=== PATIENT | female | born 1990 | race Caucasian/White ===

== ENCOUNTER 2017-06-21 08:56 | Emergency (ER) | payer MEDICAID ==
[2017-06-21 08:57] VITALS: BMI 23.6
[2017-06-21 09:08] VITALS: RESP 18; O2SAT 99
--- NOTE | 2017-06-21 09:22 | C.PDOC ---
History Of Present Illness Pt is a 27 year old fever who is c/o of developing a gradual onset headache that started on evening. The headache has been constant. She states the MOSER is a 10 (on 1-10 scale). The headache is located in the frontal area of the head (pointing along left and right eyebrows and in center). Pt states that a fever started on Friday. Tmax was 100.8F. Tyelnol helps symptoms a little. Pt also took flu medicine yesterday--which helped a little. No cough, no stuffy nose, no runny nose, no sore throat. Pt also c/o pain in both of her ears--pressure type of pain. LMP was Friday. Pt states she doesn't think that she is . Pt has had headaches before. Pt cannot recall if she had a flu shot this year. PMD: Dr. Iggy Rhodes . Time Seen by Provider: 06/21/17 09:07 Chief Complaint (Nursing): Fever History Per: Patient History/Exam Limitations: no limitations Past Medical History Reviewed: Historical Data, Nursing Documentation, Vital Signs Vital Signs: Last Vital Signs Temp 98.5 F 06/21/17 11:10 Pulse 75 06/21/17 11:10 Resp 18 06/21/17 11:10 BP 102/67 06/21/17 11:10 Pulse Ox 99 06/21/17 11:21 - Medical History PMH: No Chronic Diseases Surgical History: Family History: States: Other Other Family History: thyroid cancer - Social History Hx Tobacco Use: No Hx Alcohol Use: No Hx Substance Use: No - Immunization History Hx Tetanus Toxoid Vaccination: Yes Hx Influenza Vaccination: No Hx Pneumococcal Vaccination: Yes Review Of Systems Except As Marked, All Systems Reviewed And Found Negative. Constitutional: Positive for: Fever ENT: Positive for: Ear Pain Cardiovascular: Negative for: Chest Pain Respiratory: Negative for: Shortness of Breath Gastrointestinal: Negative for: Nausea, Vomiting, Abdominal Pain Neurological: Positive for: Headache Physical Exam - Physical Exam Appears: Well, Non-toxic, No Acute Distress Skin: Normal Color, Warm, Dry Head: Atraumatic Eye(s): bilateral: Normal Inspection Ear(s): Bilateral: TM Dull Nose: Normal, Other ((+) frontal sinus tenderness) Oral Mucosa: Moist Tongue: Normal Appearing Lips: Normal Appearing Teeth: Normal Dentition Throat: Normal Neck: Normal Lymphatic: Deferred Chest: Symmetrical Cardiovascular: Rhythm Regular Respiratory: Normal Breath Sounds Gastrointestinal/Abdominal: Normal Exam, Soft, No Tenderness Rectal: Deferred Back: Normal Inspection Extremity: Bilateral: Atraumatic Neurological/Psych: Oriented x3 ED Course And Treatment O2 Sat by Pulse Oximetry: 99 Medical Decision Making Medical Decision Making: Initial Impression: Sinusitis Initial Plan: Will give pain medication and Sudafed and reassess Progress Note(s): Patient states she feels much better. MOSER is now a "6". Pt states that she now has also started coughing and is also requesting some cough medicine. Pt looks well. Will d/c home. . Disposition Counseled Patient/Family Regarding: Studies Performed, Diagnosis, Need For Followup - Disposition Disposition: HOME/ ROUTINE Disposition Time: 11:09 Condition: IMPROVED Additional Instructions: Erin, thank you for letting us take care of you today. Return to the ER if your symptoms worsen, or if any problems. Take the medication listed below as prescribed. Follow up with your doctor in 2-3 days for a re-evaluation. Prescriptions: Amoxicillin/Clavulanate [Augmentin 875 MG-125 MG] 1 tab PO BID #14 tab guaiFENesin [Robitussin] 1 tbs PO Q4 PRN #4 oz PRN Reason: Cough Ibuprofen [Motrin] 1 tab PO TID PRN #30 tab PRN Reason: Headache Pseudoephedrine HCl [Sudafed] 1 tab PO Q6 PRN #28 tablet PRN Reason: Cough And Congestion Instructions: Sinusitis (ED) Forms: [employer] (Arabic), General Discharge Instructions Print Language: CZECH - POA Present On Arrival: None - Clinical Impression Clinical Impression: Sinusitis
[2017-06-21] MEDS ORDERED: Amoxicillin-Clav 875-125 mg Tab PO STA (11:09)
[2017-06-21 11:11] VITALS: BP 102/67; PULSE 75; TEMP 98.5
[2017-06-21] MEDS ORDERED: Amoxicillin-Clav 875-125 mg Tab PO ONE (11:15)
== END 2017-06-21 11:25 | disposition home or self-care (01) ==
LOC: C.ER 08:56
DX: J32.9 Chronic sinusitis, unspecified (principal)

== ENCOUNTER 2018-04-14 09:11 | Emergency (ER) | payer MEDICAID ==
[2018-04-14 09:11] VITALS: BMI 23.6
[2018-04-14] MEDS ORDERED: Sodium Chloride 0.9% 500 ML IV ONE (09:36)
--- NOTE | 2018-04-14 09:36 | C.PDOC ---
History Of Present Illness 28 y/o female with surgical history of presents to ED with c/o lower abdominal pain since yesterday. Patient states pain developed gradually and was first on mid abdomen, now located on RLQ. Patient admits to nausea and denies vomiting, vaginal bleeding, dysuria, vaginal discharge, diarrhea or any other complaints at this time. LMP 03/19/18 <YunierClover - Last Filed: 04/14/18 12:51> History Per: Patient History/Exam Limitations: no limitations Onset/Duration Of Symptoms: Days, Gradual Current Symptoms Are (Timing): Still Present Location Of Pain/Discomfort: RLQ <Clover Faye - Last Filed: 04/14/18 12:51> <Lillian Liang - Last Filed: 04/14/18 14:07> Time Seen by Provider: 04/14/18 09:20 Chief Complaint (Nursing): Abdominal Pain Past Medical History Reviewed: Historical Data, Nursing Documentation, Vital Signs Vital Signs: Last Vital Signs Temp 98.9 F 04/14/18 09:21 Pulse 79 04/14/18 09:21 Resp 20 04/14/18 09:21 BP 130/76 04/14/18 09:21 Pulse Ox 100 04/14/18 09:21 - Medical History PMH: No Chronic Diseases Surgical History: Family History: States: No Known Family Hx - Social History Hx Tobacco Use: No Hx Alcohol Use: No Hx Substance Use: No - Immunization History Hx Tetanus Toxoid Vaccination: Yes Hx Influenza Vaccination: No Hx Pneumococcal Vaccination: Yes <YunierClover - Last Filed: 04/14/18 12:51> Vital Signs: Last Vital Signs Temp 98.9 F 04/14/18 12:31 Pulse 68 04/14/18 12:31 Resp 16 04/14/18 12:31 BP 103/67 04/14/18 12:31 Pulse Ox 100 04/14/18 12:51 <Lillian Liang - Last Filed: 04/14/18 14:07> Review Of Systems Constitutional: Negative for: Fever, Chills Gastrointestinal: Positive for: Nausea, Abdominal Pain. Negative for: Vomiting, Diarrhea Genitourinary: Positive for: Pelvic Pain. Negative for: Dysuria, Vaginal Discharge, Vaginal Bleeding Musculoskeletal: Negative for: Back Pain Skin: Negative for: Rash <Ho,Clover - Last Filed: 04/14/18 12:51> Physical Exam - Physical Exam Appears: Non-toxic, Other (In moderate distress) Skin: Warm, Dry, No Rash Head: Atraumatic, Normacephalic Eye(s): bilateral: Normal Inspection Oral Mucosa: Moist Neck: Supple Cardiovascular: Rhythm Regular Respiratory: Normal Breath Sounds, No Rales, No Rhonchi, No Wheezing Gastrointestinal/Abdominal: Soft, Tenderness (bilateral lower quadrants and pelvic area), No Guarding, No Rebound Back: No CVA Tenderness Neurological/Psych: Oriented x3, Normal Speech, Normal Motor, Normal Sensation <Clover Faye - Last Filed: 04/14/18 12:51> ED Course And Treatment - Laboratory Results Result Diagrams: 04/14/18 09:55 04/14/18 09:55 O2 Sat by Pulse Oximetry: 100 (RA) Pulse Ox Interpretation: Normal <Clover Faye - Last Filed: 04/14/18 12:51> - Laboratory Results Result Diagrams: 04/14/18 09:55 04/14/18 09:55 <Lillian Liang - Last Filed: 04/14/18 14:07> Progress - Re-Evaluation Re-evaluation Note: 04/14/18 12:34 RECUR PAIN. VSS. US NEG. PENDING CT - Data Reviewed Data Reviewed: Lab, Diagnostic imaging, Old records <Clover Faye - Last Filed: 04/14/18 12:51> Disposition - Disposition Disposition Time: 13:00 <Clover Faye - Last Filed: 04/14/18 12:51> <Lillian Liang - Last Filed: 04/14/18 14:07> - Disposition Condition: STABLE Forms: [employer] (Tanzanian) - Clinical Impression Clinical Impression: Abdominal pain - Scribe Statement The provider has reviewed the documentation as recorded by the Norisibanabella Jacques All medical record entries made by the Norisibe were at my direction and personally dictated by me. I have reviewed the chart and agree that the record accurately reflects my personal performance of the history, physical exam, medical decision making, and the department course for this patient. I have also personally directed, reviewed, and agree with the discharge instructions and disposition. <Clover Faye - Last Filed: 04/14/18 12:51> Physician Patient Turnover Patient Signed Over To: Lillian Liang Handoff Comments: fu ct, dispo <Clover Faye - Last Filed: 04/14/18 12:51> Addendum Addendum: 04/14/18 13:56 Accession No. : [id number] Patient Name / ID : PARESH FLORES B / [id number] Exam Date : 04/14/2018 12:56:27 ( Approved ) Study Comment : Sex / Age : F / 28Y Creator : Sarah Manriquez Dictator : Brianna Inman MD Section Forest Fire Warden : Telemetry Technician : Brianna Inman MD Approver2 : Report Date : 04/14/2018 13:13:11 My Comment : PROCEDURE: CT Abdomen and Pelvis with oral and IV contrast. HISTORY: RLQ PAIN RO APPY COMPARISON: None available. TECHNIQUE: Contiguous axial images of the abdomen and pelvis. Oral and IV contrast was administered. Coronal and Sagittal reformats generated and reviewed. Contrast dose: 100 cc Visipaque 320 Radiation dose: Total exam DLP = 258.35 mGy-cm. This CT exam was performed using one or more of the following dose reduction te chniques: Automated exposure control, adjustment of the mA and/or kV according to patient size, and/or use of iterative reconstruction technique. FINDINGS: LOWER THORAX: No visible consolidation, pleural effusion, or pneumothorax. LIVER: Unremarkable. GALLBLADDER AND BILE DUCTS: Unremarkable. PANCREAS: Unremarkable. SPLEEN: Unremarkable. ADRENALS: Unremarkable. KIDNEYS AND URETERS: The kidneys enhance symmetrically. No hydronephrosis or obstructing renal calculus. BLADDER: The urinary bladder appears unremarkable. REPRODUCTIVE: Uterus is present. Heterogeneous appearance of the uterus with suspected fibroid. Apparent fluid within the endometrium. APPENDIX: The appendix appears within normal limits of caliber. No secondary signs of acute appendicitis. BOWEL: The stomach is nondistended. The bowel loops appear within normal limits of caliber without evidence of intestinal obstruction. Moderate constipation. PERITONEUM: No significant free fluid. No definite free air. LYMPH NODES: No bulky lymphadenopathy identified. VASCULATURE: No aortic aneurysm. BONES: No acute osseous abnormality is detected. OTHER FINDINGS: None. IMPRESSION: Uterus is present. Heterogeneous appearance of the uterus with suspected fibroid. Apparent fluid within the endometrium. Suggest pelvic ultrasound for further evaluation. The appendix appears within normal limits of caliber. No secondary signs of acute appendicitis. 04/14/18 13:57 Accession No. : [id number] Patient Name / ID : PARESH FLORES B / [id number] Exam Date : 04/14/2018 11:25:55 ( Approved ) Study Comment : Sex / Age : F / 28Y Creator : Brianna Inman MD Dictator : Brianna Inman MD Section Forest Fire Warden : Telemetry Technician : Brianna Inman MD Approver2 : Report Date : 04/14/2018 12:17:29 My Comment : Date of service: 04/14/2018 HISTORY: pelvic pain COMPARISON: Pelvic/transvaginal ultrasound performed 04/27/15 TECHNIQUE: Real-time transabdominal pelvic ultrasound was performed. In addition a transvaginal pelvic ultrasound was necessary to better depict pelvic anatomy. FINDINGS: UTERUS: Measures 9.5 x 4.7 x 6.4 cm. Anteverted. ENDOMETRIUM: Measures 1.5 cm in diameter. CERVIX: No cervical abnormality identified. RIGHT OVARY: Measures 2.7 x 2.1 x 2.4 cm. Blood flow is demonstrated. LEFT OVARY: Measures 2.7 x 1.8 x 2.7 cm. Blood flow is demonstrated. 1.4 cm follicle. FREE FLUID: Small pelvic free fluid. OTHER FINDINGS: None. IMPRESSION: No acute findings identified. See above. 04/14/18 14:02 Patient currently resting comfortably, states her pain has improved and she feels better. She reports a history of endometriosis, states the last time she had this type of pain her aluminum can collector told her it was due to endometriosis. On exam, abdomen is currently soft and nontender. CT scan shows uterine fibroid and some free fluid in pelvis (? endometrial fluid), without evidence of acute intrababdominal findings. UA +leuk and rare bacteria. Will give Rxs for pain medication and antibioitics. Patient instructed to follow up with boat finisher within 1 week, and understands she should return to ED if symptoms worsen. <Lillian Liang - Last Filed: 04/14/18 14:07>
[2018-04-14 09:59] LABS: BASO % 0.6 % (0.0-2.0); EOS # 0.1 K/uL (0.0-0.7); EOS % 1.5 % (0.0-4.0); LYMPH # 1.3 K/uL (1.0-4.3); LYMPH % 27.7 % (20.0-40.0); MEAN CELL VOLUME 89.4 fL (81.0-99.0); MEAN CORPUSCULAR HEMOGLOBIN 30.2 pg (27.0-31.0); MEAN CORPUSCULAR HGB CONC 33.8 g/dL (33.0-37.0); MEAN PLATELET VOLUME 8.5 fL (7.2-11.7); MONO # 0.4 K/uL (0.0-0.8); MONO % 7.5 % (0.0-10.0); NEUT % 62.7 % (50.0-75.0); NRBC % 0.1 % (0.0-2.0); RBC 3.97 Mil/uL (3.80-5.20); RED CELL DISTRIBUTION WIDTH 13.1 % (11.5-14.5)
[2018-04-14] MEDS ORDERED: Sodium Chloride 0.9% 1,000 ML ONE (09:59)
[2018-04-14 10:02] LABS: WHITE BLOOD COUNT 4.8 K/uL (4.8-10.8)
[2018-04-14] MEDS ORDERED: Iohexol 240 (50 ml) PO ONE (10:07)
[2018-04-14 10:11] LABS: ALB/GLOB RATIO 1.3 (1.0-2.1); ALBUMIN 4.3 g/dL (3.5-5.0); ALT/SGPT 22 U/L (9-52); AST/SGOT 13 U/L (14-36); BLOOD UREA NITROGEN 13 mg/dL (7-17); CALCIUM 8.9 mg/dl (8.6-10.4); GFR NON-AFRICAN AMERICAN > 60; LIPASE 100 U/L (23-300); SQUAMOUS EPITHIAL 3 /hpf (0-5); URINE BACTERIA RARE (<OCC); URINE BILIRUBIN NEGATIVE (NEGATIVE); URINE BLOOD NEGATIVE (NEGATIVE); URINE CLARITY Clear (Clear); URINE COLOR Yellow (YELLOW); URINE GLUCOSE (UA) NORMAL (Normal); URINE LEUKOCYTE ESTERASE 1+ Leu/uL (Negative); URINE PROTEIN NEGATIVE (NEGATIVE); URINE UROBILINOGEN NORMAL mg/dL (0.2-1.0)
[2018-04-14] MEDS ORDERED: Iohexol 240 (50 ml) ONE (10:20)
--- NOTE | 2018-04-14 12:19 | US ---
Date of service: 04/14/2018 HISTORY: pelvic pain COMPARISON: Pelvic/transvaginal ultrasound performed 04/27/15 TECHNIQUE: Real-time transabdominal pelvic ultrasound was performed. In addition a transvaginal pelvic ultrasound was necessary to better depict pelvic anatomy. FINDINGS: UTERUS: Measures 9.5 x 4.7 x 6.4 cm. Anteverted. ENDOMETRIUM: Measures 1.5 cm in diameter. CERVIX: No cervical abnormality identified. RIGHT OVARY: Measures 2.7 x 2.1 x 2.4 cm. Blood flow is demonstrated. LEFT OVARY: Measures 2.7 x 1.8 x 2.7 cm. Blood flow is demonstrated. 1.4 cm follicle. FREE FLUID: Small pelvic free fluid. OTHER FINDINGS: None. IMPRESSION: No acute findings identified. See above.
[2018-04-14] MEDS ORDERED: Iodixanol 320 MG/ML 100 ML BOTTLE IV ONE (12:24)
[2018-04-14 12:34] VITALS: O2SAT 100
[2018-04-14] MEDS ORDERED: Morphine 4 MG/ML VIAL ONE (13:14)
--- NOTE | 2018-04-14 13:37 | CT ---
PROCEDURE: CT Abdomen and Pelvis with oral and IV contrast. HISTORY: RLQ PAIN RO APPY COMPARISON: None available. TECHNIQUE: Contiguous axial images of the abdomen and pelvis. Oral and IV contrast was administered. Coronal and Sagittal reformats generated and reviewed. Contrast dose: 100 cc Visipaque 320 Radiation dose: Total exam DLP = 258.35 mGy-cm. This CT exam was performed using one or more of the following dose reduction techniques: Automated exposure control, adjustment of the mA and/or kV according to patient size, and/or use of iterative reconstruction technique. FINDINGS: LOWER THORAX: No visible consolidation, pleural effusion, or pneumothorax. LIVER: Unremarkable. GALLBLADDER AND BILE DUCTS: Unremarkable. PANCREAS: Unremarkable. SPLEEN: Unremarkable. ADRENALS: Unremarkable. KIDNEYS AND URETERS: The kidneys enhance symmetrically. No hydronephrosis or obstructing renal calculus. BLADDER: The urinary bladder appears unremarkable. REPRODUCTIVE: Uterus is present. Heterogeneous appearance of the uterus with suspected fibroid. Apparent fluid within the endometrium. APPENDIX: The appendix appears within normal limits of caliber. No secondary signs of acute appendicitis. BOWEL: The stomach is nondistended. The bowel loops appear within normal limits of caliber without evidence of intestinal obstruction. Moderate constipation. PERITONEUM: No significant free fluid. No definite free air. LYMPH NODES: No bulky lymphadenopathy identified. VASCULATURE: No aortic aneurysm. BONES: No acute osseous abnormality is detected. OTHER FINDINGS: None. IMPRESSION: Uterus is present. Heterogeneous appearance of the uterus with suspected fibroid. Apparent fluid within the endometrium. Suggest pelvic ultrasound for further evaluation. The appendix appears within normal limits of caliber. No secondary signs of acute appendicitis.
[2018-04-14 14:25] VITALS: BP 107/66; PULSE 70; RESP 18; TEMP 98.2
== END 2018-04-14 14:25 | disposition home or self-care (01) ==
LOC: C.ER 09:11
DX: R10.30 Lower abdominal pain, unspecified (principal)
CPT/HCPCS: 74177; 76830; 76856; 80053; 81001; 83690; 85025; 96361; 96374; 96375; 96376; 99285; J2270; J2405; J7040; Q9966; Q9967